=== PATIENT | male | born 1970 | race Caucasian/White ===

== ENCOUNTER 2017-03-02 17:29 | Emergency (ER) | payer SELFPAY | END 2017-03-02 20:13 | disposition home or self-care (01) | LOC: D.ER 17:29 | DX: L03.011 Cellulitis of right finger (principal); F17.200 Nicotine dependence, unspecified, uncomplicated ==

== ENCOUNTER 2018-02-05 10:59 | Emergency (ER) | payer MEDICAID ==
[~2018-02-05] VITALS: Ht 172.7 cm; Wt 72.7 kg
[2018-02-05 11:09] VITALS: BP 118/76; Ht 172.7 cm; Wt 72.7 kg
[2018-02-05] MEDS ORDERED: GABAPENTIN100 MG PO (11:12)
[2018-02-05] MEDS ORDERED: ULTRAM50 MG PO (11:12)
[2018-02-05] MEDS ORDERED: PERCOCET 10/3251 TA1 PO (11:12)
[2018-02-05] MEDS ORDERED: HYDROCODONE-APA1 TAB PO (11:13)
[2018-02-05] MEDS ORDERED: NORCO 7.5/325 T1 TA1 PO (12:34)
[2018-02-05] MEDS ORDERED: CLEOCIN HCL300 MG PO (12:34)
== END 2018-02-05 13:03 | disposition home or self-care (01) ==
LOC: D.ER 10:59
DX: Z76.0 Encounter for issue of repeat prescription (principal); S01.80XD Unspecified open wound of other part of head, subsequent encounter; X58.XXXD Exposure to other specified factors, subsequent encounter; W34.00XD Accidental discharge from unspecified firearms or gun, subsequent encounter; F17.200 Nicotine dependence, unspecified, uncomplicated

== ENCOUNTER 2020-01-18 16:13 | Emergency (ER) | payer MEDICAID ==
[~2020-01-18] VITALS: Ht 172.7 cm; Wt 77.3 kg
[~2020-01-18 16:13] MED LIST: CLEOCIN HCL300 MG PO; GABAPENTIN100 MG PO; HYDROCODONE-APA1 TAB PO; NORCO 7.5/325 T1 TA1 PO; PERCOCET 10/3251 TA1 PO; ULTRAM50 MG PO
[2020-01-18 16:25] VITALS: Ht 172.7 cm; Wt 77.3 kg
[2020-01-18 17:02] LABS: BASOPHILS 0.4 % (0-2); EOSINOPHILS 0.8 % (0-7); HEMATOCRIT 45.1 % (42.0-54.0); HEMOGLOBIN 14.8 g/dL (13.5-17.5); IMMATURE GRANULOCYTES 0.2 % (0-5); LYMPHOCYTES 16.3 % (15-50); MCH 30.2 pg (26.0-34.0); MCHC 32.8 g/dL (31.0-37.0); MEAN PLATELET VOLUME 9.9 fL (7.4-10.4); MONOCYTES 2.6 % (2-11); NEUTROPHILS 79.7 % (40-80); PLATELET COUNT 329 10x3/uL (130-400); RDW 12.7 % (11.5-14.5); WBC 11.3 10x3/uL (4.8-10.8)
[2020-01-18 17:10] LABS: BILIRUBIN NEGATIVE (NEGATIVE); GLUCOSE NEGATIVE (NEGATIVE); KETONE NEGATIVE (NEGATIVE); NITRITE NEGATIVE (NEGATIVE); UROBILINOGEN NORMAL (NORMAL)
[2020-01-18 17:13] LABS: CALC OSMOLALITY 278 mosm/kg (275-300); CHLORIDE - SERUM 104 mmol/L (98-107); GLUCOSE 125 mg/dL (74-106); POTASSIUM - SERUM 4.2 mmol/L (3.5-5.1); SODIUM 140 mmol/L (136-145); UREA NITROGEN 9 mg/dL (7-18); eGFR NON AFRICAN AMERICAN 84 mL/min (90-120)
[2020-01-18] MEDS ORDERED: VISTARIL25 MG PO (17:39)
[2020-01-18] MEDS ORDERED: SUPER B COMPLE1 EAC1 PO (17:39)
[2020-01-18 17:59] VITALS: BP 136/79
== END 2020-01-18 17:59 | disposition home or self-care (01) ==
LOC: D.ER 16:13
PROVIDERS: Family Medicine
DX: R53.83 Other fatigue (principal); F41.9 Anxiety disorder, unspecified; R11.0 Nausea